=== PATIENT | female | born 1985 | race Caucasian/White ===

== ENCOUNTER 2016-11-16 13:15 | Emergency (ER) | payer OTHER ==
[2016-11-16 13:23] VITALS: BP 151/99; PULSE 101; RESP 18; TEMP 98.4
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
--- NOTE | 2016-11-16 13:46 | XR ---
EXAMINATION TYPE: XR hand complete LT DATE OF EXAM: 11/16/2016 1:39 PM CLINICAL HISTORY: pain TECHNIQUE: Frontal, lateral and oblique images of the left hand are obtained. COMPARISON: None. FINDINGS: There is no acute fracture/dislocation evident. The joint spaces appear within normal limi ts. The overlying soft tissue appears unremarkable. IMPRESSION: There is no acute fracture or dislocation. ICD 10 NO FRACTURE, INITIAL EVALUATION
[2016-11-16] MEDS ORDERED: IBUPROFEN 400 MG TAB PO STA (13:52)
== END 2016-11-16 14:00 | disposition home or self-care (01) ==
LOC: EC 13:15
DX: S60.222A Contusion of left hand, initial encounter (principal); X50.9XXA Other and unspecified overexertion or strenuous movements or postures, initial encounter
CPT/HCPCS: 99283

== ENCOUNTER → 2016-11-27 | Outpatient (CLI) | payer OTHER ==
--- NOTE | 2016-11-27 10:29 | XR ---
Left hand HISTORY: Trauma and pain 3 views of the left and correlated to prior exam 16 November 2016 Bone mineralization, joint spaces and alignment are maintained. IMPRESSION: No radiographically apparent fracture or dislocation. No radiopaque foreign body.
== END | disposition home or self-care (01) ==
LOC: RADXRMAIN 09:55
PROVIDERS: ATTEND Emergency Medicine
DX: S60.222D Contusion of left hand, subsequent encounter (principal)

== ENCOUNTER → 2017-08-02 | Outpatient (CLI) | payer OTHER ==
--- NOTE | 2017-08-02 09:35 | USB ---
Reason for exam: clinical finding. Indicated problem(s): palpable abnormality in the right breast. Physical Findings: Nurse Summary: 2cm nodule in the right breast at 6 o'clock (nurse jamari). US Breast RT Right breast ultrasound includes all four quadrants, the retroareolar region and axilla. Finding demonstrates a 4mm superficial round hypoechoic lesion at the nipple close to 9 o'clock with some thru transmission partially involving the skin surface most likely at sebaceous or epidermal inclustion cyst, 6 month follow up recommended. Dense tissue at BB. No other solid or cystic lesion seen. These results were verbally communicated with the patient and result sheet given to the patient on 08/02/17. ASSESSMENT: Probably benign, BI-RAD 3 RECOMMENDATION: Ultrasound of the right breast in 6 months. Manage on a clinical basis with regard to any suspicious palpable areas. MTDD
== END | disposition home or self-care (01) ==
LOC: RADMAMWWP 08:11
PROVIDERS: ATTEND Family Medicine
DX: N64.9 Disorder of breast, unspecified (principal)

== ENCOUNTER → 2023-12-24 | Outpatient (CLI) | payer OTHER ==
--- NOTE | 2023-12-24 14:03 | USB ---
Reason for Exam: Clinical finding. Patient History: Menarche at age 13. First Full-Term at age 22. Premenopausal. Risk Values: Caryn 5 year model risk: 0.3%. NCI Lifetime model risk: 10.0%. Technique: Method: Targeted. Findings: The area of palpable concern of the right breast, the axilla of the right breast and the retroareolar of the right breast were scanned. No solid or cystic masses are identified.. Overall Assessment: Probably benign, BI-RAD 3 Management: Diagnostic Mammogram of the left breast. A clinical breast exam by your physician is recommended on an annual basis and results should be correlated with mammographic findings. This exam should not preclude additional follow-up of suspicious palpable abnormalities. Results were given to the patient verbally at the time of exam. Electronically signed and approved by: Joey El D.O. Radiologis
== END | disposition home or self-care (01) ==
LOC: RADMAMWWP 12:48
PROVIDERS: ATTEND Family Medicine
DX: N63.12 Unspecified lump in the right breast, upper inner quadrant (principal)
CPT/HCPCS: 77062; 77066

== ENCOUNTER → 2025-04-02 | Outpatient (CLI) | payer OTHER ==
--- NOTE | 2025-04-02 18:05 | MM ---
Reason for Exam: Screening (asymptomatic). Last mammogram was performed 1 year(s) and 3 month(s) ago. Patient History: Menarche at age 13. First Full-Term at age 22. Premenopausal. Paternal grandmother had breast cancer. Paternal aunt had breast cancer under age 50. Maternal grandmother had breast cancer, age 80. Risk Values: Caryn 5 year model risk: 0.4%. NCI Lifetime model risk: 10.0%. Prior Study Comparison: 12/24/2023 Bilateral MG 3D diag mammo w/cad [facility], [facility]. Tissue Density: The breasts are heterogeneously dense, which may obscure small masses. Findings: Analyzed By CAD. There is no suspicious group of microcalcifications or new suspicious mass in either breast. Overall Assessment: Negative, BI-RAD 1 Management: Screening Mammogram of both breasts in 1 year. Patient should continue monthly self-breast exams. A clinical breast exam by your physician is recommended on an annual basis. This exam should not preclude additional follow-up of suspicious palpable abnormalities. Note on Caryn scores and lifetime risk: 1. A Caryn score greater than 3% is considered moderate risk. If this is the case, consider specialist referral to assess eligibility for a risk reducing agent. 2. If overall lifetime risk for the development of breast cancer is 20% or higher, the patient may qualify for future screening with alternating mammogram and breast MRI. [facility], , 04/02/2025 6:02 PM. Electronically signed and approved by: Liliana Villarreal M.D. Radiologist
== END | disposition home or self-care (01) ==
LOC: RADMAMWWP 11:30
PROVIDERS: ATTEND General Practice
DX: Z12.31 Encounter for screening mammogram for malignant neoplasm of breast (principal); R92.333 Mammographic heterogeneous density, bilateral breasts; Z80.3 Family history of malignant neoplasm of breast
CPT/HCPCS: 77063; 77067